=== PATIENT | male | born 1935 | race Caucasian/White ===

== ENCOUNTER 2016-09-05 14:33 | Emergency (ER) | payer MEDICARE, OTHER ==
--- NOTE | 2016-09-05 15:14 | ED ---
General Adult HPI - General Chief complaint: Skin/Abscess/Foreign Body Stated complaint: facial numbness and swelling Time Seen by Provider: 09/05/16 14:47 Source: patient, family, RN notes reviewed, old records reviewed Mode of arrival: ambulatory Limitations: altered mental status - History of Present Illness Initial comments: This is an 80-year-old male in the ER for evaluation. Patient presents here today for evaluation of swelling and edema and face. Patient has erythematous swelling of the face. Patient's symptoms started yesterday accompanied with numbness and tingling. Patient was seen in a different emergency room yesterday having continued symptoms today. Patient denies any other neurological complaints. No fevers. No other significant issue - Related Data Home Medications Medication Instructions Recorded Confirmed Carvedilol [Coreg] 6.25 mg PO BID 09/05/16 09/05/16 Insulin Glargine [Lantus] 30 unit SQ HS 09/05/16 09/05/16 Lisinopril [Zestril] 2.5 mg PO DAILY 09/05/16 09/05/16 Memantine [Namenda] 10 mg PO BID 09/05/16 09/05/16 Rivastigmine Tartrate [Exelon] 1.5 mg PO BID 09/05/16 09/05/16 Simvastatin [Zocor] 40 mg PO HS 09/05/16 09/05/16 traZODone HCL 150 mg PO HS 09/05/16 09/05/16 Allergies Allergy/AdvReac Type Severity Reaction Status Date / Time No Known Allergies Allergy Verified 09/05/16 15:26 Review of Systems ROS Statement: Those systems with pertinent positive or pertinent negative responses have been documented in the HPI. ROS Other: All systems not noted in ROS Statement are negative. Past Medical History Past Medical History: Dementia, Diabetes Mellitus, Hypertension Additional Past Medical History / Comment(s): lung nodules History of Any Multi-Drug Resistant Organisms: None Reported Additional Past Surgical History / Comment(s): lung biopsy of nodules Past Psychological History: No Psychological Hx Reported Smoking Status: Former smoker Past Alcohol Use History: None Reported Past Drug Use History: None Reported General Exam Limitations: altered mental status General appearance: alert, in no apparent distress Head exam: Present: normocephalic, other (Patient does appear to have erythematous, edema to nose eyelids and face, diffuse erythema and head) Eye exam: Present: normal appearance, PERRL, EOMI. Absent: scleral icterus, conjunctival injection, periorbital swelling ENT exam: Present: normal exam, mucous membranes moist Neck exam: Present: normal inspection. Absent: tenderness, meningismus, lymphadenopathy Respiratory exam: Present: normal lung sounds bilaterally. Absent: respiratory distress, wheezes, rales, rhonchi, stridor Cardiovascular Exam: Present: regular rate, normal rhythm, normal heart sounds. Absent: systolic murmur, diastolic murmur, rubs, gallop, clicks GI/Abdominal exam: Present: soft, normal bowel sounds. Absent: distended, tenderness, guarding, rebound, rigid Extremities exam: Present: normal inspection, full ROM, normal capillary refill. Absent: tenderness, pedal edema, joint swelling, calf tenderness Back exam: Present: normal inspection Neurological exam: Present: alert, oriented X3, CN II-XII intact Psychiatric exam: Present: normal affect, normal mood Skin exam: Present: warm, dry, intact, normal color. Absent: rash Course Vital Signs 09/05/16 09/05/16 09/05/16 14:52 15:52 16:00 Temperature 98.4 F Pulse Rate 100 89 94 Respiratory 18 18 16 Rate Blood Pressure 171/80 171/80 203/85 O2 Sat by Pulse 96 97 97 Oximetry 09/05/16 16:46 Temperature Pulse Rate Respiratory Rate Blood Pressure 176/82 O2 Sat by Pulse Oximetry - Reevaluation(s) Reevaluation #1: 09/05/16 16:56 Patient's symptoms are mildly improved Medical Decision Making - Medical Decision Making 80 a healthy for evaluation. He presents here for evaluation of photodermatitis likely photodermatitis, patient will continue taking antihistamines and anti-inflammatories. Patient has no difficulties. No acute distress, no stress of breath, likely ALLERGIC reaction patient can be discharged home - Lab Data Result diagrams: 09/05/16 15:50 09/05/16 15:50 Lab Results 09/05/16 09/05/16 09/05/16 Range/Units 15:50 15:50 15:50 WBC 10.4 (3.8-10.6) k/uL RBC 3.50 L (4.30-5.90) m/uL Hgb 11.6 L (13.0-17.5) gm/dL Hct 32.0 L (39.0-53.0) % MCV 91.3 (80.0-100.0) fL MCH 33.2 (25.0-35.0) pg MCHC 36.4 (31.0-37.0) g/dL RDW 16.6 H (11.5-15.5) % Plt Count 197 (150-450) k/uL Neutrophils % 67 % Lymphocytes % 27 % Monocytes % 5 % Eosinophils % 1 % Basophils % 0 % Neutrophils # 6.9 (1.3-7.7) k/uL Lymphocytes # 2.8 (1.0-4.8) k/uL Monocytes # 0.5 (0-1.0) k/uL Eosinophils # 0.1 (0-0.7) k/uL Basophils # 0.0 (0-0.2) k/uL Hyperchromasia Marked Poikilocytosis Moderate Anisocytosis Slight Sodium 142 (137-145) mmol/L Potassium 3.6 (3.5-5.1) mmol/L Chloride 106 (98-107) mmol/L Carbon Dioxide 26 (22-30) mmol/L Anion Gap 10 mmol/L BUN 22 H (9-20) mg/dL Creatinine 0.90 (0.66-1.25) mg/dL Est GFR (MDRD) Af Amer >60 (>60 ml/min/1.73 sqM) Est GFR (MDRD) Non-Af >60 (>60 ml/min/1.73 sqM) Glucose 121 H (74-99) mg/dL Calcium 10.4 H (8.4-10.2) mg/dL Phosphorus 2.5 (2.5-4.5) mg/dL Magnesium 1.9 (1.6-2.3) mg/dL Total Bilirubin 1.4 H (0.2-1.3) mg/dL AST 17 (17-59) U/L ALT 24 (21-72) U/L Alkaline Phosphatase 77 (38-126) U/L Total Creatine Kinase 41 L (55-170) U/L CK-MB (CK-2) 0.7 (0.0-2.4) ng/mL CK-MB (CK-2) Rel Index 1.7 C-Reactive Protein 5.4 (<10.0) mg/L Total Protein 7.1 (6.3-8.2) g/dL Albumin 4.4 (3.5-5.0) g/dL - Radiology Data Radiology results: report reviewed (CT brain and facial bones is negative for acute disease), image reviewed Disposition Clinical Impression: Contact dermatitis, Sunburn Disposition: HOME SELF-CARE Condition: Good Instructions: Contact Dermatitis (ED) Referrals: Eron Rivera Jr, [Primary Care Provider] - 1-2 days
[2016-09-05] MEDS ORDERED: SODIUM CHLORIDE 0.9% 1,000 ML IV STA ×2 (15:24)
[2016-09-05] MEDS ORDERED: FAMOTIDINE 20 MG/2 ML VIAL IV STA (15:25)
[2016-09-05] MEDS ORDERED: diphenhydrAMINE 50 MG/ML 1 ML VIAL IVP STA (15:25)
[2016-09-05 16:01] VITALS: RESP 16
[2016-09-05 16:03] LABS: Anisocytosis Slight; Basophils % (A) 0 %; CH 35.5; CHCM 39.2; Eosinophils # (A) 0.1 k/uL (0-0.7); Eosinophils % (A) 1 %; HDW 4.26; HGB 11.6 gm/dL (13.0-17.5); Hyperchromasia Marked; Luc # (Auto) 0.09; Luc % (Auto) 1; Lymphocytes # (A) 2.8 k/uL (1.0-4.8); Lymphocytes % (A) 27 %; MCH 33.2 pg (25.0-35.0); MCHC 36.4 g/dL (31.0-37.0); MCV 91.3 fL (80.0-100.0); Mean Platelet Volume 6.5; Monocytes # (A) 0.5 k/uL (0-1.0); Monocytes % (A) 5 %; Neutrophils # (A) 6.9 k/uL (1.3-7.7); Neutrophils % (A) 67 %; Poikilocytosis Moderate; RDW 16.6 % (11.5-15.5); WBC 10.4 k/uL (3.8-10.6); WBC (Perox) 10.65
[2016-09-05 16:20] LABS: ALT 24 U/L (21-72); AST 17 U/L (17-59); Alkaline Phosphatase 77 U/L (38-126); Anion Gap 10 mmol/L; Blood Urea Nitrogen 22 mg/dL (9-20); C Reactive Protein 5.4 mg/L (<10.0); Calcium 10.4 mg/dL (8.4-10.2); Carbon Dioxide 26 mmol/L (22-30); Chloride 106 mmol/L (98-107); Glucose 121 mg/dL (74-99); Magnesium 1.9 mg/dL (1.6-2.3); Non-African American GFR(MDRD) >60 (>60 ml/min/1.73 sqM); Phosphorous 2.5 mg/dL (2.5-4.5); Potassium 3.6 mmol/L (3.5-5.1); Sodium 142 mmol/L (137-145); Total Bilirubin 1.4 mg/dL (0.2-1.3); Total Protein 7.1 g/dL (6.3-8.2)
[2016-09-05 16:32] LABS: Creatine Kinase MB 0.7 ng/mL (0.0-2.4)
--- NOTE | 2016-09-05 16:43 | CT ---
EXAMINATION TYPE: CT brain wo con, CT facial bones wo con DATE OF EXAM: 09/05/2016 4:30 PM HISTORY: Facial swelling x [address] DLP: 1725.00 mGycm. Automated Exposure Control for Dose Reduction was Utilized. TECHNIQUE: CT scan of the head and facial bones are performed without contrast. COMPARISON: None. FINDINGS: There is no acute intracranial hemorrhage or midline shift identified. There is diffuse v entricular and sulcal prominence consistent with diffuse age-related cerebral atrophy. There is low- attenuation in the periventricular white matter consistent with chronic small vessel ischemic change. 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 The calvarium is intact. Possible small scalp hematoma right parietal region there are axial image 42, clinical correlation fo r recent trauma advised. Nasal bridge is intact. Nasal septum is deviated to left of midline without acute fracture. Zygomatic arches are intact bilaterally. The mandible is intact. Temporomandibular joints are maintained bilat erally. The pterygoid plates are intact. Orbital floors and shepherd are intact. The globes are intact b ilaterally. Intraconal fat is preserved. Bilateral enophthalmos is noted. Mild to borderline diffuse subcutaneous edema is seen over the cheeks bilaterally. No worrisome focal fluid collection is identi fied. Mild mucosal thickening involving ethmoid sinuses is present bilaterally otherwise paranasal si nuses are clear. Soft tissue density bilateral external auditory canals likely reflects cerumen. IMPRESSION: 1. No acute intracranial hemorrhage or midline shift. There is mild to moderate diffuse age-related cerebral atrophy and chronic small vessel ischemic change noted. 2. No acute facial bone fracture or dislocation is evident. Nonspecific mild to borderline moderate s ubcutaneous edema over bilateral cheeks is seen.
[2016-09-05] MEDS ORDERED: KETOROLAC 30 MG/ML 1 ML VIAL IVP STA (16:56)
[2016-09-05 17:03] VITALS: BP 175/83; PULSE 86; TEMP 97.6
== END 2016-09-05 17:02 | disposition home or self-care (01) ==
LOC: EC 14:33
DX: L25.9 Unspecified contact dermatitis, unspecified cause (principal); L55.9 Sunburn, unspecified; F03.90 Unspecified dementia, unspecified severity, without behavioral disturbance, psychotic disturbance, mood disturbance, and anxiety; I10 Essential (primary) hypertension; E11.9 Type 2 diabetes mellitus without complications; Z87.891 Personal history of nicotine dependence; Z79.4 Long term (current) use of insulin; Z79.899 Other long term (current) drug therapy
CPT/HCPCS: 36415; 80053; 82550; 82553; 83735; 84100; 85025; 86140; 70486; 70450; 99284; 96374; 96375; 96361; J1200